=== PATIENT | male | born 1985 | race Caucasian/White ===

== ENCOUNTER 2020-11-25 09:04 | Outpatient (REF) | payer OTHER, SELFPAY ==
[2020-11-25 10:03] LABS: MANUAL DIFF FLAG NO
[2020-11-25 10:12] LABS: Basophils Absolute Auto 0.1 X10*3/uL (0.0-0.2); Basophils Percent Auto 1.4 % (0-2); Eosinophils Absolute Auto 0.1 X10*3/uL (0.0-0.4); Hematocrit 47.4 % (42-52); Hemoglobin 15.9 g/dl (14.0-18.0); Imm Gran Abs Auto 0.01 X10*3/uL (0.00-0.03); Imm Gran Pct Auto 0.2 % (0.0-0.4); Lymphocytes Absolute Auto 1.4 X10*3/uL (1.2-4.9); Lymphocytes Percent Auto 32.6 % (20-40); Mean Corpuscular HGB Conc 33.5 g/dl (31.0-36.0); Mean Corpuscular Hemoglobin 29.2 pg (27.0-33.0); Mean Platelet Volume 9.9 fL (9.4-12.4); Monocytes Absolute Auto 0.4 X10*3/uL (0.1-1.2); Monocytes Percent Auto 8.4 % (2-11); Neutrophils Absolute Auto 2.4 X10*3/uL (2.0-8.3); Neutrophils Percent Auto 54.4 % (45-73); Platelet Count 263 X10*3/uL (160-400); Red Blood Count 5.45 X10*6/uL (4.60-5.80); Red Cell Distribution Width 13.1 % (11.0-16.0); White Blood Count 4.4 X10*3/uL (4.8-10.8)
[2020-11-25 10:23] LABS: Alanine Aminotransferase 39 U/L (0-40); Albumin Level 4.9 g/dL (3.5-5.0); Alkaline Phosphatase 70 U/L (39-117); Anion Gap 11 (12-20); Aspartate Amino Transferase 32 U/L (5-37); Blood Urea Nitrogen 12 mg/dL (9-16); Calcium 9.9 mg/dL (8.4-10.2); Carbon Dioxide 28 mmol/L (22-29); Chloride 105 mmol/L (96-108); Cholesterol 210 mg/dL; Estimated Glomerular Filt Rate > 60; Glucose Random 109 mg/dL (60-115); HDL Cholesterol 36 mg/dL; LDL Cholesterol Calculated 126 mg/dl; Potassium 4.5 mmol/L (3.3-5.1); Sodium 139 mmol/L (135-145); Total Protein 7.9 g/dL (6.5-8.0); Triglycerides 243 mg/dL
[2020-11-25 10:31] LABS: Estimated Average Glucose 103 mg/dL; Hemoglobin A1C 134.0252 umol/L; Hemoglobin A1c % 5.2 %
[2020-11-25 10:46] LABS: Free T4 (Free Thyroxine) 0.78 ng/dL (0.71-1.85); Thyroid Stimulating Hormone 0.66 uIU/mL (0.32-4.0)
[2020-11-25 11:03] LABS: Folate 8.8 ng/mL (> or = 4.0); Vitamin B12 244 pg/mL (200-900)
== END 2020-11-25 09:05 | disposition home or self-care (01) ==
LOC: HO.LAB 09:04
PROVIDERS: PCP Internal Medicine; Visit Provider Internal Medicine
DX: E78.00 Pure hypercholesterolemia, unspecified (principal)
CPT/HCPCS: 36415; 80053; 80061; 82607; 82746; 83036; 84439; 84443; 85025

== ENCOUNTER 2022-11-12 06:57 | Outpatient (REF) | payer OTHER, SELFPAY ==
[2022-11-12 07:13] LABS: MANUAL DIFF FLAG NO
[2022-11-12 07:30] LABS: Basophils Absolute Auto 0.1 X10*3/uL (0.0-0.2); Basophils Percent Auto 0.6 % (0-2); Eosinophils Absolute Auto 0.2 X10*3/uL (0.0-0.4); Eosinophils Percent Auto 2.3 % (0-4); Hematocrit 50.5 % (42.0-52.0); Hemoglobin 16.8 g/dl (14.0-18.0); Imm Gran Abs Auto 0.01 X10*3/uL (0.00-0.03); Imm Gran Pct Auto 0.1 % (0.0-0.4); Lymphocytes Percent Auto 25.4 % (20-40); Mean Corpuscular HGB Conc 33.3 g/dl (31.0-36.0); Mean Corpuscular Hemoglobin 28.4 pg (27.0-33.0); Mean Corpuscular Volume 85.3 fL (80.0-98.0); Monocytes Absolute Auto 0.6 X10*3/uL (0.1-1.2); Monocytes Percent Auto 7.4 % (2-11); Neutrophils Percent Auto 64.2 % (45-73); Platelet Count 287 X10*3/uL (160-400); Red Blood Count 5.92 X10*6/uL (4.60-5.80); White Blood Count 7.8 X10*3/uL (4.8-10.8)
[2022-11-12 07:47] LABS: Estimated Average Glucose 111 mg/dL; Hemoglobin A1C 150.4055 umol/L; Hemoglobin A1c % 5.5 %
[2022-11-12 08:09] LABS: Alanine Aminotransferase 30 U/L (0-40); Albumin Level 4.7 g/dL (3.5-5.0); Alkaline Phosphatase 88 U/L (39-117); Anion Gap 12 (12-20); Aspartate Amino Transferase 25 U/L (5-37); Bilirubin Total 1.2 mg/dL (0.0-1.0); Blood Urea Nitrogen 16 mg/dL (9-16); Calcium 9.7 mg/dL (8.4-10.2); Carbon Dioxide 25 mmol/L (22-29); Chloride 106 mmol/L (96-108); Cholesterol 227 mg/dL; Estimated Glomerular Filt Rate > 60; Glucose Random 110 mg/dL (60-115); HDL Cholesterol 31 mg/dL; LDL Cholesterol Calculated 155 mg/dl; Potassium 4.3 mmol/L (3.3-5.1); Sodium 139 mmol/L (135-145); Total Protein 7.7 g/dL (6.5-8.0); Triglycerides 206 mg/dL
[2022-11-12 08:30] LABS: Folate 9.3 ng/mL (> or = 4.0); Free T4 (Free Thyroxine) 0.87 ng/dL (0.71-1.85); Thyroid Stimulating Hormone 1.43 uIU/mL (0.32-4.0); Vitamin B12 282 pg/mL (200-900)
== END 2022-11-12 06:58 | disposition home or self-care (01) ==
LOC: HO.LAB 06:57
PROVIDERS: PCP Internal Medicine; Visit Provider Internal Medicine
DX: R73.02 Impaired glucose tolerance (oral) (principal); E78.00 Pure hypercholesterolemia, unspecified
CPT/HCPCS: 36415; 80053; 80061; 82607; 82746; 83036; 84439; 84443; 85025

== ENCOUNTER 2025-07-22 09:51 | Outpatient (REF) | payer SELFPAY ==
[2025-07-22 13:49] LABS: Appearance Urine Clear; Glucose Urine UA Negative (Negative); PH 6.5 (5.0-9.0); Specific Gravity - Urine 1.025 (1.005-1.025)
[2025-07-22 15:36] LABS: CT PCR Urine NOT DETECTED (Not Detect.); NG PCR Urine NOT DETECTED (Not Detect.)
== END 2025-07-22 09:52 | disposition home or self-care (01) ==
LOC: HO.LAB 09:51
PROVIDERS: Nurse Practitioner Family; PCP Internal Medicine
DX: R35.0 Frequency of micturition (principal); Z20.2 Contact with and (suspected) exposure to infections with a predominantly sexual mode of transmission
CPT/HCPCS: 81003; 87491; 87591; 99212

== ENCOUNTER 2025-07-22 09:51 | Outpatient (AMB) | payer SELFPAY ==
--- NOTE | 2025-07-22 10:32 | AM.OFFWIN_ITS ---
Intake Vital Signs 07/22/25 10:33 Height 5 ft 6 in Weight 207 lb BMI 33.4 BP 106/74 Blood Pressure Location Lt brachial Position Sitting Pulse 70 Pulse Source Pulse Oximeter Temp 97.6 F Temp Source Oral Pulse Oximetry (%) 99 Oxygen Delivery Method Room Air Intake Visit Reasons: EP-urine issues Intake Note: pt presents with inability to hold urine with urine frequency, minimal low abdominal pain 4-5 days Patient Tobacco Use Status: Never used Tobacco Allergies No Known Allergies Allergy (Verified 07/22/25 10:44) Do you need a note to return to daycare/school/sports/work: No HPI HPI Comments History of Present Illness Details 40 y/o male presents with inability to h old urine, urinary frequency, urinary leakage, and mild lower abdominal pain for the past 4?5 days. Sexually active with female partners; reports unprotected intercourse. Denies penile rash/Discharge, fever, chills, nausea, vomiting, or hematuria. [facility] Medical History (Updated 07/22/25 @ 11:25 by Ana Iyer NP) Increased frequency of urination Vitamin B12 deficiency Impaired glucose tolerance Hypercholesterolemia Anxiety and depression Balanitis Surgical History No pertinent past surgical history Family History Father Diabetes Hypertension Stroke Depression with anxiety Mental health disorder Mother Hypertension Diabetes Sister No problems noted. Son No problems noted. Son No problems noted. Daughter No problems noted. Social History (Updated 11/04/22 @ 15:39 by Rhona Riley MD) Housing: House Alcohol intake: current Patient Tobacco Use Status: Never used Tobacco Tobacco use type: Cigarette service: No Current occupational status: employed Review of Systems Const All systems reviewed & are unremarkable except as noted in HPI and below Physical Exam Vital Signs: Last Vital Signs Temp 97.6 F 07/22/25 10:33 Pulse 70 07/22/25 10:33 BP 106/74 07/22/25 10:33 Pulse Ox 99 07/22/25 10:33 Oxygen Delivery Method Room Air 07/22/25 10:33 BMI result Body Mass Index 33.4 Const General: no acute distress Nutritional Appearance: overweight Orientation/consciousness: patient oriented x3 General: Yes no CVA tenderness and Yes deferred Back/Spine/Pelvis Back: no CVA tenderness Neuro General: patient oriented x3, gait normal and moves all extremities Psych Speech and movement: Normal speech and movement present Assessment & Plan Assessment & Plan (1) Increased frequency of urination: Code(s): R35.0 - Frequency of micturition Plan: Urinalysis Negative - will send Urine for C&S. Urinary incontinence / urinary frequency ? need to rule out UTI STI testing: GC/Chlamydia NAAT, Trichomonas as ordered. Overactive bladder vs prostatitis also remain in differential. Avoid bladder irritants (caffeine, alcohol, Soda). Orders: Orders CT NG by PCR Urine Today R35.0 - Frequency of micturition UA CC w/rflx Micro + Cult Today R35.0 - Frequency of micturition Coding Level of Care Code Est Pt Level 4 (88351) Diagnoses Increased frequency of urination R35.0 Time Spent (min) 20
[2025-07-22 10:33] VITALS: BP 106/74; PULSE 70; TEMP 36.4; O2SAT 99; BMI 33.4
--- OUTSIDE RECORDS SUMMARY | 2025-07-22 11:49 | XMS_ITS | Clinical Summary ---
Author Organization [facility] ity Address [address] [place] [address] Care Team Providers Care Axminster Weaver Name Role Phone Unavailable Primary Care Provider Unavailabl e Social History Tobacco Use Types Packs/Day Years Used Date Smoking Tobacco: Never Assessed Sex and Gender Information Value Date Recorded Sex Assigned at Not on file Legal Sex Male 12:15 AM EST Gender Identity Not on file Sexual Orientation Not on file Plan of Treatment Health Maintenance Due Date Last Done Comments DTaP,Tdap,and Td Vaccines (1 - Tdap) 2006 Hepatitis B Vaccines (1 of 3 - 19+ 3-dose series) 2006 HPV Vaccines (1 - 3-dose SCD M series) 2014 Depression Screening 08/22/2024 COVID-19 Vaccine (1 - 2024-2 6 season) 2025 Influenza Vaccine (#1) 2025 RSV Immunization Adult Patie nts (1 - 1-dose 75+ series) 2062 HIB Vaccines Aged Out No longer eligi ble based on patient's age to complete this topic Hepatitis A Vaccines Aged Out No long er eligible based on patient's age to complete this topic IPV Vaccines Aged Out No longer eligi ble based on patient's age to complete this topic MMR Vaccines Aged Out No longer eligi ble based on patient's age to complete this topic Meningococcal ACWY Vaccine Aged Out N o longer eligible based on patient's age to complete this topic Meningococcal B Vaccine Aged Out No l onger eligible based on patient's age to complete this topic Pneumococcal Vaccine: Pediat rics (0 to 5 Years) and At-Risk Patients (6 to 49 Years) Aged Out No longer eligible b ased on patient's age to complete this topic RSV Immunization Patients Un leroy 20 months Aged Out No longer eligible b ased on patient's age to complete this topic Varicella Vaccines Aged Out No longer eligible based on patient's age to complete this topic
== END 2025-07-22 11:32 | disposition home or self-care (01) ==
PROVIDERS: PCP Internal Medicine; Visit Provider Nurse Practitioner Family
DX: Z13.9 Encounter for screening, unspecified (principal); R35.0 Frequency of micturition